=== PATIENT | female | born 1990 | race Asian ===

== ENCOUNTER 2020-10-21 18:48 | Emergency (ER) | payer OTHER, SELFPAY ==
[2020-10-21 18:57] VITALS: BP 142/71; PULSE 98; RESP 18; TEMP 37; O2SAT 100; BMI 26.2
--- NOTE | 2020-10-21 19:07 | PC.NURSE ---
Ice pack applied to head
== END 2020-10-21 19:22 | disposition left against medical advice (07) ==
PROVIDERS: Emergency Provider Emergency Medicine
CPT/HCPCS: 99281